=== PATIENT | female | born 1960 | race African-American/Black ===

== ENCOUNTER 2016-08-22 18:46 | Emergency (ER) | payer OTHER ==
[~2016-08-22] VITALS: Ht 162.6 cm; Wt 83.9 kg
--- NOTE | ~2016-08-22 | EKG ---
[place] [address] [address] / [email or web address] [address] ELECTROCARDIOGRAM REPORT Name: HOANG CERVANTES Room #: DEP Basil#: [id number] Admission: 08/22/16 Attend Phys: Discharge: 08/22/16 Date of : 56 Report #: [id number] THIS REPORT FOR: //name// [facility] ED Test Date: 2016-08-22 Test Time: 19:02:03 Pat Name: HOANG CERVANTES Department: Room: Gender: F Student Financial Aid Manager: debra : 1960 Requested By: Shannon Jenkins Order Number: [id number] MD: Tee Woods Measurements Intervals [place] Rate: 84 P: 21 MT: 155 QRS: 73 QRSD: 88 T: 28 QT: 382 QTc: 452 Interpretive Statements Sinus rhythm Abnormal R-wave progression, early transition No previous ECG available for comparison Electronically Signed On 08-23-2016 7:58:04 CDT by Tee Woods [email or web address] <ELECTRONICALLY SIGNED> By: Tee Woods MD, [facility] 08/23/16 0758 [id number] 01 Tee Woods MD, FACC /EPI
[~2016-08-22 18:46] MED LIST: CITRATE OF MAG300 ML PO; GABAPENTIN 100100 MG PO; IBUPROFEN 200200 M1 PO; LISINOPRIL20 MG PO; MOBIC15 MG PO; NORCO 10-325 T1 EACH PO; NORCO 5-325 TA1 EACH PO; PROZAC20 MG PO; VICODIN 5-5001 EACH PO; ZOFRAN ODT4 MG PO; [UNRECOGNIZED DRUG - REMARK]
[2016-08-22] MEDS ORDERED: LISINOPRIL-HCT1 EAC2 PO (18:54)
[2016-08-22] MEDS ORDERED: NORCO 5-325 TA1 EACH PO (20:12)
[2016-08-22] MEDS ORDERED: IBUPROFEN 800800 M1 PO (20:12)
[2016-08-22] MEDS ORDERED: FLEXERIL PO (20:13)
[2016-08-22 20:29] VITALS: BP 138/90
== END 2016-08-22 20:31 | disposition home or self-care (01) ==
LOC: ER 18:46
DX: S16.1XXA Strain of muscle, fascia and tendon at neck level, initial encounter (principal); S39.012A Strain of muscle, fascia and tendon of lower back, initial encounter; S20.219A Contusion of unspecified front wall of thorax, initial encounter; S00.83XA Contusion of other part of head, initial encounter; S80.02XA Contusion of left knee, initial encounter; S80.01XA Contusion of right knee, initial encounter; I10 Essential (primary) hypertension; F17.210 Nicotine dependence, cigarettes, uncomplicated; Z91.041 Radiographic dye allergy status; V43.52XA Car driver injured in collision with other type car in traffic accident, initial encounter; Y93.I9 Activity, other involving external motion; Y92.488 Other paved roadways as the place of occurrence of the external cause; Y99.9 Unspecified external cause status

== ENCOUNTER 2017-01-05 01:58 | Emergency (ER) | payer OTHER ==
[~2017-01-05] VITALS: Ht 160 cm; Wt 86.2 kg
[~2017-01-05 01:58] MED LIST changes: +FLEXERIL PO; +IBUPROFEN 800800 M1 PO; +LISINOPRIL-HCT1 EAC2 PO
[2017-01-05 03:31] LABS: ABSOLUTE NEUTROPHILS 4.3 thou/uL (1.4-8.2); BASOPHILS 0.6 % (0.0-2.0); EOSINOPHILS 0.7 % (0.0-3.0); HEMATOCRIT 40.7 % (37.0-47.0); HEMOGLOBIN 13.6 gm/dL (12.0-15.0); LYMPHOCYTES 26.2 % (24.0-44.0); MCH 31.8 pg (26.0-34.0); MCHC 33.4 g/dL (28.0-37.0); MCV 95.4 fL (80.0-100.0); MONOCYTES 6.8 % (1.0-8.0); PLATELET COUNT 250 thou/uL (150-400); POLYS 65.7 % (36.0-66.0); RBC 4.27 mil/uL (4.20-5.00); RDW 13.9 % (10.5-14.5); WBC 6.5 thou/uL (4.0-11.0)
[2017-01-05 03:33] LABS: MANUAL DIFF NO
[2017-01-05 03:38] LABS: CALCIUM 9.4 mg/dL (8.5-10.1); POTASSIUM 3.2 mmol/L (3.5-5.1)
[2017-01-05 03:44] LABS: ALBUMIN 4.1 g/dL (3.4-5.0); DIRECT BILIRUBIN 0.1 mg/dL (<0.1-0.3); TOTAL BILIRUBIN 0.9 mg/dL (<0.1-1.0); TOTAL PROTEIN 7.8 g/dL (6.4-8.2)
[2017-01-05] MEDS ORDERED: ZOFRAN ODT4 MG PO (06:12)
[2017-01-05] MEDS ORDERED: ULTRAM 50MG TAB50 MG PO (06:12)
[2017-01-05 07:35] VITALS: BP 124/74
== END 2017-01-05 07:38 | disposition home or self-care (01) ==
LOC: ER 01:58
PROVIDERS: Emergency Medicine
DX: E87.6 Hypokalemia (principal); K59.00 Constipation, unspecified; R11.2 Nausea with vomiting, unspecified; I10 Essential (primary) hypertension; F17.210 Nicotine dependence, cigarettes, uncomplicated; F10.99 Alcohol use, unspecified with unspecified alcohol-induced disorder; F15.10 Other stimulant abuse, uncomplicated; Z98.890 Other specified postprocedural states; Z91.041 Radiographic dye allergy status